=== PATIENT | female | born 1940 | race Caucasian/White ===

== ENCOUNTER 2017-07-05 14:57 | Emergency (ER) | payer MEDICARE, BC ==
[2017-07-05 15:20] VITALS: BP 129/92
[2017-07-05] MEDS ORDERED: Acetaminophen/oxyCODONE 325-5 MG Tab PO ONE ×2 (15:24→16:08)
--- NOTE | 2017-07-05 15:29 | EDM.PDOC ---
ED HPI GENERAL MEDICAL PROBLEM - General Chief Complaint: Upper Extremity Injury/Pain Stated Complaint: FELL & HURT RT SHOULDER Time Seen by Provider: 07/05/17 15:15 Source of Information: Reports: Patient, Old Records, RN History Limitations: Reports: No Limitations - History of Present Illness INITIAL COMMENTS - FREE TEXT/NARRATIVE: 76 yo female fell about 20 minutes before arrival landing on and injuring her R shoulder. Has no numbness in her hand. No self tx before arrival. No other injuries. 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 (see below) (none) - Related Data Allergies Allergy/AdvReac Type Severity Reaction Status Date / Time No Known Allergies Allergy Verified 07/05/17 15:17 Home Meds: Home Meds Zolpidem Tartrate [Ambien] 5 mg PO BEDTIME 04/03/13 [History] Ibuprofen 200 mg PO PRN 04/05/13 [History] Past Medical History HEENT History: Reports: 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: - Past Surgical History GI Surgical History: Reports: Cholecystectomy Female Surgical History: Reports: Hysterectomy Social & Family History - Tobacco Use Smoking Status *Q: Former Smoker Years of Tobacco use: 52 Used Tobacco, but Quit: Yes Month Tobacco Last Used: 5 YEARS AGO Second Hand Smoke Exposure: No - Recreational Drug Use Recreational Drug Use: No Review of Systems - Review of Systems Review Of Systems: See Below Constitutional: Reports: No Symptoms Respiratory: Reports: No Symptoms Musculoskeletal: Reports: Shoulder Pain (right) Skin: Reports: No Symptoms Neurological: Reports: No Symptoms ED EXAM, GENERAL - Physical Exam Exam: See Below Exam Limited By: No Limitations General Appearance: Alert, WD/WN, No Apparent Distress Throat/Mouth: Normal Inspection Head: Atraumatic, Normocephalic Neck: Normal Inspection, Supple, Non-Tender Respiratory/Chest: No Respiratory Distress Cardiovascular: Regular Rate, Rhythm Back Exam: Normal Inspection Extremities: Normal Inspection, Limited Range of Motion (of R shoulder due to pain.). No: Normal Range of Motion, Non-Tender, Increased Warmth Neurological: Alert, Oriented, CN II-XII Intact, Normal Cognition, No Motor/ Sensory Deficits Psychiatric: Normal Affect, Normal Mood Skin Exam: Warm, Dry, Intact, Normal Color, No Rash Course - Vital Signs Text/Narrative:: Consulted with orthopedics. Last Recorded V/S: Last Vital Signs Temp 35.1 C L 07/05/17 15:21 Pulse 110 H 07/05/17 15:21 Resp 16 07/05/17 15:17 BP 129/92 H 07/05/17 15:21 Pulse Ox 95 07/05/17 15:21 - Orders/Labs/Meds Orders: Active Orders 24 hr Category Date Time Status Humerus Rt [CR] Stat Exams 07/05/17 15:25 Taken Meds: Medications Discontinued Medications Generic Name Dose Route Start Last Admin Trade Name Freq PRN Reason Stop Dose Admin Oxycodone/Acetaminophen 1 tab 07/05/17 15:24 07/05/17 15:39 Percocet 325-5 Mg PO 07/05/17 15:25 1 tab ONETIME ONE Administration - Radiology Interpretation Free Text/Narrative:: R shoulder X-ray- Departure - Departure Time of Disposition: 16:15 Disposition: Home, Self-Care 01 Condition: Fair Clinical Impression: Fracture of humeral head, right, closed Qualifiers: Encounter type: initial encounter Qualified Code(s): S42.291A - Other displaced fracture of upper end of right humerus, initial encounter for closed fracture - Discharge Information Referrals: Khoa Rocha Sr, MD [Primary Care Provider] - Forms: ED Department Discharge - My Orders Last 24 Hours: My Active Orders 07/05/17 15:25 Humerus Rt [CR] Stat - Assessment/Plan Last 24 Hours: My Active Orders 07/05/17 15:25 Humerus Rt [CR] Stat
--- NOTE | 2017-07-06 08:42 | CR ---
Humerus Rt INDICATION: fall with pain COMPARISON: None FINDINGS: 2 views. Fracture of the proximal humerus involving the greater tuberosity. No signific ant displacement. Glenohumeral and AC joints intact. Remainder of the humerus is intact.
== END 2017-07-05 16:35 | disposition home or self-care (01) ==
LOC: JP.ED 14:57
DX: S42.251A Displaced fracture of greater tuberosity of right humerus, initial encounter for closed fracture (principal); Z87.891 Personal history of nicotine dependence; W19.XXXA Unspecified fall, initial encounter
CPT/HCPCS: 73060; 99284; A9270

== ENCOUNTER 2018-10-18 11:19 | Emergency (ER) | payer MEDICARE, BC ==
[2018-10-18 11:58] VITALS: BP 158/76
--- NOTE | 2018-10-18 12:31 | CRLCT ---
INDICATION: WEKANESS, APHASIA CT HEAD WITHOUT CONTRAST TECHNIQUE: Multiple axial CT images were performed through the head without intravenous contrast administration. COMPARISON: No previous studies are currently available for comparison. FINDINGS: No acute intracranial hemorrhage is identified. No extra-axial collections are evident and there is no mass effect or midline shift. There is mild diffuse age-related brain atrophy. Ventricular size and configuration are within normal limits for the patient`s age. Giles-white differentiation is within normal limits. There is patchy hypodensity in the periventricular white matter, a nonspecific finding which most likely reflects chronic small vessel ischemic change. Intracranial atherosclerotic vascular calcifications are noted. Osseous structures are within normal limits and no fractures are seen. Included portions of the paranasal sinuses and mastoid air cells are normally aerated. IMPRESSION: 1. No acute intracranial abnormality identified. 2. Age-related brain atrophy, white matter hypodensity consistent with chronic small vessel ischemic change, and intracranial atherosclerotic vascular calcifications. LUISA GRACIA MD [facility] Dictated by: Javid Gracia MD @ 10/18/2018 12:31:07 (Electronically Signed)
--- NOTE | 2018-10-18 12:49 | EDM.PDOC ---
ED HPI GENERAL MEDICAL PROBLEM - General Chief Complaint: Neurological Problem Stated Complaint: STOKE??? 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 Right retrobulbar headache. No fevers or chills, no nausea or vomiting, no significant peripheral weakness. 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: Musculoskeletal History: Reports: Fracture Other Musculoskeletal History: right humerus FX Immunologic History: Reports: Other (See Below) 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 - Past Surgical History GI Surgical History: Reports: Cholecystectomy Female Surgical History: Reports: Hysterectomy Social & Family History - Tobacco Use Smoking Status *Q: Former Smoker Used Tobacco, but Quit: Yes Month/Year Tobacco Last Used: 10 years - Caffeine Use Caffeine Use: Reports: Coffee, Soda, Tea - Recreational Drug Use Recreational Drug Use: No ED ROS GENERAL - Review of Systems Review Of Systems: See Below Constitutional: Denies: Fever, Chills HEENT: Reports: Other (Blind right eye) Respiratory: Denies: Shortness of Breath Cardiovascular: Denies: Chest Pain GI/Abdominal: Denies: Abdominal Pain, Nausea, Vomiting Skin: Reports: No Symptoms Neurological: Reports: Confusion, Other (Expressive aphasia). Denies: Headache ED EXAM, NEURO - Physical Exam Exam: See Below Exam Limited By: Altered Mental Status General Appearance: Alert, No Apparent Distress Eye Exam: Bilateral Eye: Other (Left pupil is normal) Head Exam: Atraumatic Neck: Supple, Non-Tender Respiratory/Chest: No Respiratory Distress Cardiovascular: Regular Rate, Rhythm Neurological: Alert, Oriented x 3, Other (Initially it appeared there was some slight right facial droop but no extremity weakness or asymmetry.) Extremities: Normal Inspection Psychiatric: Flat Affect Skin Exam: Warm, Dry Course - Vital Signs Last Recorded V/S: Last Vital Signs Temp 96.8 F 10/18/18 11:33 Pulse 85 10/18/18 11:57 Resp 17 10/18/18 11:57 BP 158/76 H 10/18/18 11:57 Pulse Ox 97 10/18/18 11:57 - Re-Assessments/Exams Free Text/Narrative Re-Assessment/Exam: 10/18/18 12:[address] of the head was done which was normal. I went in to discuss the CT scan with the patient and she was sitting up and insisting on leaving. I told her I would like to do some labs this morning best eating but she insisted on leaving. Departure - Departure Time of Disposition: 12:59 Disposition: Home, Self-Care 01 Clinical Impression: Expressive aphasia Headache Qualifiers: Headache type: unspecified Headache chronicity pattern: acute headache Intractability: not intractable Qualified Code(s): R51 - Headache - Discharge Information Instructions: General Headache Without Cause, [id number] Referrals: Khoa Rocha Sr, MD [Primary Care Provider] - Forms: ED Department Discharge Care Plan Goals: Continue any current medications, recheck with Dr. Galindo Rocha in the next few days if not improving satisfactorily.
== END 2018-10-18 12:59 | disposition home or self-care (01) ==
LOC: JP.ED 11:19
DX: R51 Headache (principal); R47.01 Aphasia; Z87.891 Personal history of nicotine dependence
CPT/HCPCS: 70450; 99283; 99285-25

== ENCOUNTER 2020-11-14 06:00 | Day surgery (SDC) | payer MEDICARE, BC ==
[2020-11-14] MEDS ORDERED: Sodium Chloride 0.9% 1,000 ML IV SCH (06:30)
[2020-11-14] MEDS ORDERED: Propofol 200 MG/20 ML SDV ONE (07:08)
[2020-11-14] MEDS ORDERED: fentaNYL 100 MCG/2 ML SDV ONE (07:08)
[2020-11-14] MEDS ORDERED: Ondansetron 4 MG/2 ML SDV IVPUSH ONE (08:04)
[2020-11-14 08:37] VITALS: BP 118/60; PULSE 67
--- NOTE | 2020-11-14 15:45 | PROC ---
DATE OF PROCEDURE: 11/14/2020 SURGEON: Khoa Rocha MD INDICATIONS: Kathleen is a 79-year-old female, comes in because of difficulty swallowing. She has had esophageal stenosis in the past and this was done 2 years ago and has recurrent problems again. She has trouble getting food down. The risks and benefits were explained of having esophageal dilatation which would be done in the OR. PROCEDURE IN DETAIL: The risks and benefits were explained to the patient. She was taken to the OR. Anesthesia was given by nurse obstetrician gynecologist. Anesthesia used was fentanyl 100 mcg and 80 mg of propofol. The Olympus 180 was placed into the pharynx and esophagus without difficulty and advanced under direct vision into the body of the stomach. The tube was advanced into the prepyloric area. The pylorus was narrowed, but finally did get through with pressure. We then advanced into the first and second part of the duodenum. Upon retraction of the tube, noted no lesions or ulceration. No abnormality. The tube was brought back into the stomach. The pylorus appeared to be dilated some by the scope. The greater and lesser curvatures were unremarkable. The tube was retroflexed and revealed no abnormality in the fundus. The Savary dilator guidewire was then placed through the scope and the tube was slowly retracted. There was a small hiatal hernia with mild distal esophagitis evident. The remainder of the esophagus was unremarkable. There appeared to be a narrowed area right in the first part of the esophagus. The tube was removed. The patient tolerated the procedure well of this part. We then used a Savary dilator and advanced over the guidewire. We used a 32, then 39, then 42, and then 48 dilator tube. There was a small amount of blood after the 48 was used. The dilator and the wire were removed and the patient tolerated the procedure well. PREOPERATIVE DIAGNOSIS: Esophageal stenosis. POSTOPERATIVE DIAGNOSES: Esophageal stenosis, dilated to 48-Emirati, and there was narrowing of the pylorus open to the size of the scope, which was estimated 34-Emirati. Khoa Rocha MD /[id number]
== END 2020-11-14 08:50 | disposition home or self-care (01) ==
LOC: JP.SDS 06:00
PROVIDERS: ATTEND Internal Medicine
DX: K22.2 Esophageal obstruction (principal); I10 Essential (primary) hypertension; Z86.73 Personal history of transient ischemic attack (TIA), and cerebral infarction without residual deficits
CPT/HCPCS: J2405; J2704; J3010; J7030

== ENCOUNTER 2022-09-30 06:58 | Day surgery (SDC) | payer MEDICARE, BC ==
[2022-09-30] MEDS ORDERED: Propofol 200 MG/20 ML SDV ONE (07:12)
[2022-09-30] MEDS ORDERED: Sodium Chloride 0.9% 1,000 ML IV SCH (07:30)
[2022-09-30 10:12] VITALS: BP 130/64; PULSE 70
== END 2022-09-30 10:10 | disposition home or self-care (01) ==
LOC: JP.SDS 06:58
PROVIDERS: ATTEND Internal Medicine
DX: K22.2 Esophageal obstruction (principal); I10 Essential (primary) hypertension; F32.A Depression, unspecified
CPT/HCPCS: 43248; J2704; J7030

== ENCOUNTER 2022-09-30 14:05 | Emergency (ER) | payer MEDICARE, BC ==
[2022-09-30] MEDS ORDERED: fentaNYL 50 MCG/ML SDV IM ONE (14:40)
[2022-09-30] MEDS ORDERED: Ondansetron 4 MG Tab.DIS PO ONE (14:45)
[2022-09-30 15:40] VITALS: BP 126/52; PULSE 78
== END 2022-09-30 16:23 | disposition home or self-care (01) ==
LOC: JP.ED 14:05
DX: R10.10 Upper abdominal pain, unspecified (principal); R10.13 Epigastric pain; G89.18 Other acute postprocedural pain; Z86.73 Personal history of transient ischemic attack (TIA), and cerebral infarction without residual deficits; Z79.82 Long term (current) use of aspirin; Z79.899 Other long term (current) drug therapy
CPT/HCPCS: 71250; 96372; 99285; J3010; Q0162